=== PATIENT | male | born 1960 | race Caucasian/White ===

== ENCOUNTER 2018-10-19 21:56 | Emergency (ER) | payer SELFPAY ==
[~2018-10-19] VITALS: Ht 190.5 cm; Wt 119.2 kg
--- NOTE | 2018-10-19 22:09 | ED.ADGEN ---
Adult General Chief Complaint Chief Complaint ".. I ve not been sick like this for years... I ve been sick 3 days... Nausea....vomiting.... diarrhea..." HPI HPI Patient is a 58 year old male inmate from [facility] who presents with above hx and complaints of nausea, vomiting, diarrhea 3 days. Patient complaining of generalized abdomen pain and some localization to epigastric area. Patient has been exposed to another prisoner who had gastro-intestinal illness. No history of contact with birds amphibians or reptiles or sick animals. Patient reports vomiting last night at 9 PM. History of diarrhea 3 days since 11:00. Pt. reports last ate a turkey when she at noon. Patient denies any intake of bad food. Patient denies any travel . Patient denies any immunosuppression. Review of Systems Review of Systems Constitutional: Complaints of fever or chills [] Eyes: Denies change in visual acuity, redness, or eye pain [] HENT: Denies nasal congestion or sore throat [] Respiratory: Denies cough or shortness of breath [] Cardiovascular: No additional information not addressed in HPI [] GI: Complaints of generalized abdominal pain, nausea, vomiting, and diarrhea [] : Denies dysuria or hematuria [] Musculoskeletal: Denies back pain or joint pain [] Integument: Denies rash or skin lesions [] Neurologic: Denies headache, focal weakness or sensory changes [] Endocrine: Denies polyuria or polydipsia [] All other systems were reviewed and found to be within normal limits, except as documented in this note. Family History Family History Non-contributory Current Medications Current Medications Current Medications Medications (Trade) Dose Ordered Sig/Isreal Start Time Stop Time Status Last Admin Dose Admin Famotidine (Pepcid Vial) 20 mg 1X ONCE 10/19/18 22:30 10/19/18 22:31 DC 10/19/18 23:00 20 MG Ketorolac Tromethamine (Toradol 30mg Vial) 30 mg 1X ONCE 10/19/18 22:30 10/19/18 22:31 DC 10/19/18 22:59 30 MG Lactated Ringer's 1,000 ml @ 1,000 mls/hr Q1H 10/19/18 22:17 10/19/18 23:16 DC 10/19/18 22:59 1,000 MLS/HR Ondansetron HCl (Zofran) 8 mg 1X ONCE 10/19/18 22:30 10/19/18 22:31 DC 10/19/18 22:59 8 MG See nursing for home meds Allergies Allergies Allergies Coded Allergies Type Severity Reaction Last Updated Verified No Known Drug Allergies 10/19/18 No Physical Exam Physical Exam Constitutional: Well developed, well nourished, mild distress, non-toxic appearance. [] HENT: Normocephalic, atraumatic, bilateral external ears normal, oropharynx moist, no oral exudates, nose normal. [] Eyes: PERRLA, EOMI, conjunctiva normal, no discharge. [] Neck: Normal range of motion, no tenderness, supple, no stridor. [] Cardiovascular:Heart rate regular rhythm, no murmur [] Lungs & Thorax: Bilateral breath sounds clear to auscultation [] Abdomen: Bowel sounds hyperactive, soft, generalized tenderness, some localization to epigastric area. No masses, no pulsatile masses. [] Skin: Warm, dry, no erythema, no rash. [] Back: No tenderness, no CVA tenderness. [] Extremities: No tenderness, no cyanosis, no clubbing, ROM intact, no edema. [] Neurologic: Alert and oriented X 3, normal motor function, normal sensory function, no focal deficits noted. [] Psychologic: Affect anxious, judgement normal, mood normal. [] Current Patient Data Vital Signs Vital Signs Date Time Temp Pulse Resp B/P (MAP) Pulse Ox O2 Delivery O2 Flow Rate FiO2 10/20/18 00:01 77 16 136/85 (102) 98 Room Air 10/19/18 21:56 98.0 Lab Results Laboratory Tests Test 10/19/18 22:53 White Blood Count 8.6 x10^3/uL (4.0-11.0) Red Blood Count 5.06 x10^6/uL (4.30-5.70) Hemoglobin 15.9 g/dL (13.0-17.5) Hematocrit 46.3 % (39.0-53.0) Mean Corpuscular Volume 92 fL (79-100) Mean Corpuscular Hemoglobin 32 pg (25-35) Mean Corpuscular Hemoglobin Concent 34 g/dL (31-37) Red Cell Distribution Width 13.8 % (11.5-14.5) Platelet Count 210 x10^3/uL (140-400) Neutrophils (%) (Auto) 72 % (31-73) Lymphocytes (%) (Auto) 18 % (24-48) L Monocytes (%) (Auto) 9 % (0-9) Eosinophils (%) (Auto) 1 % (0-3) Basophils (%) (Auto) 1 % (0-3) Neutrophils # (Auto) 6.2 x10^3uL (1.8-7.7) Lymphocytes # (Auto) 1.5 x10^3/uL (1.0-4.8) Monocytes # (Auto) 0.8 x10^3/uL (0.0-1.1) Eosinophils # (Auto) 0.1 x10^3/uL (0.0-0.7) Basophils # (Auto) 0.1 x10^3/uL (0.0-0.2) Prothrombin Time 11.0 SEC (9.4-11.4) Prothrombin Time INR 1.1 (0.9-1.1) PTT 28 SEC (23-33) Sodium Level 141 mmol/L (136-145) Potassium Level 3.4 mmol/L (3.5-5.1) L Chloride Level 105 mmol/L (98-107) Carbon Dioxide Level 24 mmol/L (21-32) Anion Gap 12 (6-14) Blood Urea Nitrogen 13 mg/dL (8-26) Creatinine 0.9 mg/dL (0.7-1.3) Estimated GFR (Cockcroft-Gault) 87.0 Glucose Level 90 mg/dL (70-99) Calcium Level 8.3 mg/dL (8.5-10.1) L Total Bilirubin 0.4 mg/dL (0.2-1.0) Direct Bilirubin 0.1 mg/dL (0.0-0.2) Aspartate Amino Transferase (AST) 21 U/L (15-37) Alanine Aminotransferase (ALT) 27 U/L (16-63) Alkaline Phosphatase 71 U/L (46-116) Creatine Kinase 202 U/L (39-308) Troponin I Quantitative < 0.017 ng/mL (0-0.055) Total Protein 6.7 g/dL (6.4-8.2) Albumin 3.5 g/dL (3.4-5.0) Lipase 108 U/L (73-393) EKG EKG My interpretation EKG shows a sinus rhythm at 89 bpm. There is some nonspecific leftward axis. No findings acute STEMI of contralateral changes.[] Radiology/Procedures Radiology/Procedures My interpretation acute abdomen film shows no acute cardiopulmonary findings. Nonspecific bowel gas pattern.[] Course & Med Decision Making Course & Med Decision Making Pertinent Labs and Imaging studies reviewed. (See chart for details) Pt. to remain on clear fluid diet x 48 hrs. No solids or milkproducts.;.Push fruit juices. Tylenol and Ibuprofen for discomfort. Zofran for nausea and vomiting. Follow up with primary. Return if any concerns. . [] Final Impression Final Impression 1. Hx. Gastroenteritis- NVD and abdomen pain.- viral syndrome 2. Hypokalemia Dragon Disclaimer Dragon Disclaimer This electronic medical record was generated, in whole or in part, using a voice recognition dictation system. Dragon Disclaimer This chart was dictated in whole or in part using Voice Recognition software in a busy, high-work load, and often noisy Emergency Department environment. It may contain unintended and wholly unrecognized errors or omissions. Discharge Summary Visit Information Final Diagnosis Problems Medical Problems: (1) Gastroenteritis Status: Acute Brief Hospital Course Allergies Allergies Coded Allergies Type Severity Reaction Last Updated Verified No Known Drug Allergies 10/19/18 No Vital Signs Vital Signs Date Time Temp Pulse Resp B/P (MAP) Pulse Ox O2 Delivery O2 Flow Rate FiO2 10/20/18 00:01 77 16 136/85 (102) 98 Room Air 10/19/18 21:56 98.0 Lab Results Laboratory Tests Test 10/19/18 22:53 White Blood Count 8.6 x10^3/uL (4.0-11.0) Red Blood Count 5.06 x10^6/uL (4.30-5.70) Hemoglobin 15.9 g/dL (13.0-17.5) Hematocrit 46.3 % (39.0-53.0) Mean Corpuscular Volume 92 fL (79-100) Mean Corpuscular Hemoglobin 32 pg (25-35) Mean Corpuscular Hemoglobin Concent 34 g/dL (31-37) Red Cell Distribution Width 13.8 % (11.5-14.5) Platelet Count 210 x10^3/uL (140-400) Neutrophils (%) (Auto) 72 % (31-73) Lymphocytes (%) (Auto) 18 % (24-48) Monocytes (%) (Auto) 9 % (0-9) Eosinophils (%) (Auto) 1 % (0-3) Basophils (%) (Auto) 1 % (0-3) Neutrophils # (Auto) 6.2 x10^3uL (1.8-7.7) Lymphocytes # (Auto) 1.5 x10^3/uL (1.0-4.8) Monocytes # (Auto) 0.8 x10^3/uL (0.0-1.1) Eosinophils # (Auto) 0.1 x10^3/uL (0.0-0.7) Basophils # (Auto) 0.1 x10^3/uL (0.0-0.2) Prothrombin Time 11.0 SEC (9.4-11.4) Prothromb Time International Ratio 1.1 (0.9-1.1) Activated Partial Thromboplast Time 28 SEC (23-33) Sodium Level 141 mmol/L (136-145) Potassium Level 3.4 mmol/L (3.5-5.1) Chloride Level 105 mmol/L (98-107) Carbon Dioxide Level 24 mmol/L (21-32) Anion Gap 12 (6-14) Blood Urea Nitrogen 13 mg/dL (8-26) Creatinine 0.9 mg/dL (0.7-1.3) Estimated GFR (Cockcroft-Gault) 87.0 Glucose Level 90 mg/dL (70-99) Calcium Level 8.3 mg/dL (8.5-10.1) Total Bilirubin 0.4 mg/dL (0.2-1.0) Direct Bilirubin 0.1 mg/dL (0.0-0.2) Aspartate Amino Transf (AST/SGOT) 21 U/L (15-37) Alanine Aminotransferase (ALT/SGPT) 27 U/L (16-63) Alkaline Phosphatase 71 U/L (46-116) Creatine Kinase 202 U/L (39-308) Troponin I Quantitative < 0.017 ng/mL (0-0.055) Total Protein 6.7 g/dL (6.4-8.2) Albumin 3.5 g/dL (3.4-5.0) Lipase 108 U/L (73-393) Brief Hospital Course Mr. Montemayor is a 58 old male who presented with hx NVD. Suspect Viral syndrome. DC with Zofran and clear fluid diet. Discharge Information Condition at Discharge: Improved, Stable Disposition/Orders: D/C to Home Dischare Medications Current Medications Lactated Ringer's 1,000 ml @ 1,000 mls/hr Q1H IV Last administered on at 22:59; Admin Dose 1,000 MLS/HR; Start 10/19/18 at 22:17; Stop 10/19/18 at 23:16; Status DC Ondansetron HCl (Zofran) 8 mg 1X ONCE IV Last administered on 10/19/18at 22:59 ; Admin Dose 8 MG; Start 10/19/18 at 22:30; Stop 10/19/18 at 22:31; Status DC Famotidine (Pepcid Vial) 20 mg 1X ONCE IVP Last administered on 10/19/18at 23: 00; Admin Dose 20 MG; Start 10/19/18 at 22:30; Stop 10/19/18 at 22:31; Status DC Ketorolac Tromethamine (Toradol 30mg Vial) 30 mg 1X ONCE IV Last administered on 10/19/18at 22:59; Admin Dose 30 MG; Start 10/19/18 at 22:30; Stop 10/19/18 at 22:31; Status DC Active Scripts Active Zofran (Ondansetron Hcl) 8 Mg Tablet 8 Mg PO QIDPRN JULIANA NARANJO MD Oct 19, 2018 22:09
[2018-10-19] MEDS ORDERED: IV RINGERS SOLUTION,LACTATED 1,000 ML IV SCH (22:17)
[2018-10-19] MEDS ORDERED: KETOROLAC 30 MG/ML VIAL. IV ONE (22:30)
[2018-10-19] MEDS ORDERED: FAMOTIDINE 20 MG/2 ML VIAL IVP ONE (22:30)
[2018-10-19] MEDS ORDERED: ONDANSETRON PF 4 MG/2 ML VIAL. IV ONE (22:30)
[2018-10-19] MEDS ORDERED: ONDA8TAB9 PO (22:41)
[2018-10-19 23:10] LABS: BASO # 0.1 x10^3/uL (0.0-0.2); BASO % 1 % (0-3); EOS # 0.1 x10^3/uL (0.0-0.7); EOS % 1 % (0-3); HEMATOCRIT 46.3 % (39.0-53.0); HEMOGLOBIN 15.9 g/dL (13.0-17.5); LYMPH # 1.5 x10^3/uL (1.0-4.8); LYMPH % 18 % (24-48); MEAN CORPUSCULAR HEMOGLOBIN 32 pg (25-35); MEAN CORPUSCULAR HGB CONC 34 g/dL (31-37); MEAN CORPUSCULAR VOLUME 92 fL (79-100); MONO # 0.8 x10^3/uL (0.0-1.1); MONO % 9 % (0-9); NEUT # 6.2 x10^3uL (1.8-7.7); NEUT % 72 % (31-73); PLATELET COUNT 210 x10^3/uL (140-400); RED BLOOD COUNT 5.06 x10^6/uL (4.30-5.70); RED CELL DISTRIBUTION WIDTH 13.8 % (11.5-14.5); WHITE BLOOD COUNT 8.6 x10^3/uL (4.0-11.0)
[2018-10-19 23:31] LABS: ALBUMIN 3.5 g/dL (3.4-5.0); CALCIUM 8.3 mg/dL (8.5-10.1); CREATININE 0.9 mg/dL (0.7-1.3); DIRECT BILIRUBIN 0.1 mg/dL (0.0-0.2); POTASSIUM 3.4 mmol/L (3.5-5.1); TOTAL BILIRUBIN 0.4 mg/dL (0.2-1.0); TOTAL PROTEIN 6.7 g/dL (6.4-8.2)
[2018-10-20 00:01] VITALS: BP 136/85
--- NOTE | 2018-10-20 01:29 | RAD ---
Examination: Acute abdomen series HISTORY: History of nausea, pain for 3 days COMPARISON: None available Findings: The cardiomediastinal silhouette grossly appears unremarkable. Mild bibasilar lung airspace opacities. No evidence of free air noted under the hemidiaphragm. The bowel gas pattern appears unremarkable. Feces and gas noted in the colon. IMPRESSION: 1. Minimal bibasilar lung atelectasis or infiltrates. 2. Unremarkable gas pattern. Electronically signed by: Sahil Dillon MD (10/20/2018 1:25 AM) [id number]
--- NOTE | 2018-10-20 16:07 | EKG ---
[address] [address] Test Date: 2018-10-19 Test Time: 22:43:44 Pat Name: TAINA JOHN Department: Room: Gender: M [employer]: : [id number] Requested By: JULIANA QUINONES Order Number: [id number] Reading MD: Measurements Intervals [place]ole Rate: 89 P: -1 OH: 168 QRS: -2 QRSD: 100 T: 17 QT: 346 QTc: 422 Interpretive Statements SINUS RHYTHM LEFTWARD AXIS NO SPECIFIC ECG ABNORMALITIES RI6.01 No previous ECG available for comparison
== END 2018-10-20 00:12 | disposition home or self-care (01) ==
LOC: ER 21:56
DX: K52.9 Noninfective gastroenteritis and colitis, unspecified (principal); B34.9 Viral infection, unspecified; E87.6 Hypokalemia
CPT/HCPCS: 36415; 74022; 80048; 80076; 82550; 83690; 84484; 85025; 85610; 85730; 93005; 96361; 96374; 96375; 99284; J1885; J2405; J3490; J7120